=== PATIENT | female | born 2000 | race American Indian/Alaskan Native ===

== ENCOUNTER 2021-10-18 23:26 | Emergency (ER) | payer SELFPAY ==
--- NOTE | 2021-10-19 09:02 | Emergency Department Report ---
ED Shortness of Breath HPI - General Chief Complaint: Dyspnea/Respdistress Stated Complaint: SOB Time Seen by Provider: 10/19/21 07:52 Source: EMS Mode of arrival: Ambulatory Limitations: No Limitations - History of Present Illness Initial Comments: 21-year-old female with no simper medical history presents with shortness of breath x3 weeks. Patient reports her symptoms are intermittent, out of the blue she would feel short of breath, initially she attributed it to either allergies or sinusitis, but his symptoms have gradually gotten worse. States she has also noticed she would have some cough with wheezing, she denies history of asthma, she was previously prescribed albuterol outpatient which she states she used but it helped however "they stopped prescribing it for her because they do not know the cause of her shortness of breath". States that sometimes it feels like "her airway is closing with some chest tightness". She denies history of anxiety or panic attacks, she denies history of DVTs PE, she denies any tobacco or drug use. She denies being , last menstrual period was approximately 2 weeks ago. No swelling of the extremities, no headache no dizziness no orthopnea, no recent surgery or recent travel. No fever chills no hemoptysis no nausea vomiting abdominal pain for MD Complaint: shortness of breath -: Gradual, week(s) Severity: moderate Consistency: intermittent Improves With: nothing Worsens With: nothing Associated Symptoms: cough Treatments Prior to Arrival: none - Related Data Home Oxygen Therapy: No Previous Rx's Medication Instructions Recorded Last Taken Type Albuterol Sulfate [Proventil Hfa] 6.7 gm IH Q6H PRN #1 10/19/21 Unknown Rx Montelukast (Nf) [Singulair (Nf)] 5 mg PO QPM #30 tab.chew 10/19/21 Unknown Rx ED Review of Systems ROS: Stated complaint: SOB Other details as noted in HPI Comment: All other systems reviewed and negative Constitutional: no symptoms reported Eyes: as per HPI Cardiovascular: denies: chest pain, palpitations, dyspnea on exertion, orthopnea, syncope Endocrine: denies: intolerance to cold, intolerance to heat Gastrointestinal: denies: abdominal pain, nausea, vomiting Genitourinary: denies: as per HPI Musculoskeletal: as per HPI. denies: back pain Skin: denies: rash, lesions Neurological: denies: headache, weakness ED Past Medical Hx - Past Medical History Previous Medical History?: Yes Hx Asthma: Yes - Surgical History Past Surgical History?: No - Social History Smoking Status: Never Smoker Substance Use Type: None - Medications Home Medications: Home Medications Medication Instructions Recorded Confirmed Last Taken Type Albuterol Sulfate [Proventil Hfa] 6.7 gm IH Q6H PRN #1 10/19/21 Unknown Rx Montelukast (Nf) [Singulair (Nf)] 5 mg PO QPM #30 tab.chew 10/19/21 Unknown Rx ED Physical Exam - General Limitations: No Limitations General appearance: alert, in no apparent distress - Head Head exam: Present: atraumatic - Eye Eye exam: Present: normal appearance. Absent: PERRL Pupils: Present: normal accommodation - ENT ENT exam: Present: normal exam, normal orophraynx - Neck Neck exam: Present: normal inspection. Absent: tenderness - Respiratory Respiratory exam: Present: normal lung sounds bilaterally. Absent: respiratory distress, chest wall tenderness, accessory muscle use, decreased breath sounds - Cardiovascular Cardiovascular Exam: Present: regular rate, normal rhythm - GI/Abdominal GI/Abdominal exam: Present: soft. Absent: distended, tenderness - Extremities Exam Extremities exam: Present: normal inspection, full ROM. Absent: tenderness, normal capillary refill, pedal edema - Back Exam Back exam: Present: normal inspection. Absent: full ROM, tenderness - Neurological Exam Neurological exam: Present: alert, oriented X3, normal gait - Psychiatric Psychiatric exam: Absent: normal affect - Skin Skin exam: Present: warm, dry, intact, normal color ED Course Vital Signs 10/18/21 10/19/21 23:31 09:15 Temperature 97.6 F 98.8 F Pulse Rate 76 76 Respiratory 18 16 Rate Blood Pressure 140/70 Blood Pressure 155/97 [Right] O2 Sat by Pulse 99 99 Oximetry ED Medical Decision Making - Radiology Data Radiology results: report reviewed No acute findings negative study - Medical Decision Making -year-old female with no simper medical history presents with shortness of breath x3 weeks. Patient reports her symptoms are intermittent, out of the blue she would feel short of breath, initially she attributed it to either allergies or sinusitis, but his symptoms have gradually gotten worse. States she has also noticed she would have some cough with wheezing, she denies history of asthma, she was previously prescribed albuterol outpatient which she states she used but it helped however "they stopped prescribing it for her because they do not know the cause of her shortness of breath". States that sometimes it feels like "her airway is closing with some chest tightness". She denies history of anxiety or panic attacks, she denies history of DVTs PE, she denies any tobacco or drug use. She denies being , last menstrual period was approximately 2 weeks ago. No swelling of the extremities, no headache no dizziness no orthopnea, no recent surgery or recent travel. No fever chills no hemoptysis no nausea vomiting abdominal pain . Chest x-ray negative, patient has maintained his sats above 95% on room air without supplemental oxygen, will discharge home with albuterol, Singulair to take at night, pulmonology referral. I discussed all of this with patient including return precautions with understanding. Critical care attestation.: If time is entered above; I have spent that time in minutes in the direct care of this critically ill patient, excluding procedure time. ED Disposition Clinical Impression: Shortness of breath, Wheezing Disposition: 01 HOME / SELF CARE / HOMELESS Is pt being admited?: No Does the pt Need Aspirin: No Condition: Stable Instructions: Shortness of Breath, Adult, Parh-cm-Lcfl, How to Use a Metered Dose Inhaler Prescriptions: Albuterol Sulfate [Proventil Hfa] 6.7 gm IH Q6H PRN #1 PRN Reason: Wheezing Montelukast (Nf) [Singulair (Nf)] 5 mg PO QPM #30 tab.chew Referrals: ALLIE MENDEZ MD [Staff Physician] - 3-5 Days PRIMARY CARE, [Primary Care Provider] - 3-5 Days Forms: Work/School Release Form(ED)
[2021-10-19 09:16] VITALS: BP 155/97
--- NOTE | 2021-10-19 09:33 | XRay Report ---
CHEST 1 VIEW INDICATION: Shortness of breath. COMPARISON: None FINDINGS: SUPPORT DEVICES: None. HEART: Within normal limits. LUNGS/PLEURA: No acute air space or interstitial disease. ADDITIONAL FINDINGS: None. IMPRESSION: 1. No acute findings. Signer Name: Raza Aquino MD Signed: 10/19/2021 9:29 AM Workstation Name: [id number]
== END 2021-10-19 10:45 | disposition home or self-care (01) ==
LOC: ED 23:26
DX: R06.02 Shortness of breath (principal); R06.2 Wheezing; Z79.899 Other long term (current) drug therapy
CPT/HCPCS: 71045; 99283